=== PATIENT | female | born 1940 | race Caucasian/White ===

== ENCOUNTER 2017-06-09 06:00 | Day surgery (SDC) | payer MEDICARE, BC ==
[2017-06-09] MEDS ORDERED: BUPIVACAINE/EPI 0.5% 10 ML SOL INFIL ONE ×2 (06:18→07:04)
[2017-06-09] MEDS ORDERED: PROPOFOL 500 MG/50 ML EMU IV ONE (06:39)
[2017-06-09] MEDS ORDERED: FENTANYL 100MCG/2ML SOL ONE (06:40)
[2017-06-09] MEDS ORDERED: LIDOCAINE HCL 1% MPF SOL ONE (06:40)
[2017-06-09 07:58] VITALS: PULSE 69
[2017-06-09 08:11] VITALS: BP 132/63; RESP 18; TEMP 97.4; O2SAT 98
== END 2017-06-09 08:32 | disposition home or self-care (01) | DRG 949 ==
LOC: SURG 06:00
PROVIDERS: ATTEND Surgery
DX: Z45.2 Encounter for adjustment and management of vascular access device (principal); C85.90 Non-Hodgkin lymphoma, unspecified, unspecified site
CPT/HCPCS: J3010; A6402; J2001; J2704

== ENCOUNTER 2019-05-30 17:36 | Emergency (ER) | payer MEDICARE, OTHER ==
[2019-05-30 17:36] VITALS: O2SAT 98
[2019-05-30 17:42] VITALS: BP 138/74; PULSE 75; RESP 18; TEMP 97.6
[2019-05-30] MEDS ORDERED: ENOXAPARIN 80 MG SOL SC ONE (18:06)
[2019-05-30] MEDS ORDERED: ENOXAPARIN 80 MG SOL SC SCH (18:15)
[2019-05-30 18:34] LABS: CARBON DIOXIDE 26.5 mEq/L (21-32); CREATININE 1.31 mg/dl (0.60-1.00); POTASSIUM 3.9 mMol/L (3.5-5.1)
[2019-05-30 18:35] LABS: INR 1.07 (0.86-1.12)
== END 2019-05-30 19:32 | disposition home or self-care (01) | DRG 442 ==
LOC: ED 17:36
DX: I82.0 Budd-Chiari syndrome (principal); I74.9 Embolism and thrombosis of unspecified artery; C83.10 Mantle cell lymphoma, unspecified site; R16.1 Splenomegaly, not elsewhere classified; N28.9 Disorder of kidney and ureter, unspecified; Z79.01 Long term (current) use of anticoagulants
CPT/HCPCS: 36415; 80048; 85018; 85610; 96372; 99282; 99283; J1650